=== PATIENT | female | born 1980 | race Caucasian/White ===

== ENCOUNTER → 2021-04-11 11:17 | Outpatient (CLI) | payer OTHER, SELFPAY ==
[2013-11-01 06:17] VITALS: BMI 22.8
[2021-04-11 15:15] LABS: Absolute Lymphocyte Count 2.14 X10^3/uL (0.83-4.51); Basophil# 0.02 X10^3/uL; Basophil% 0.4 % (0-1); Eosinophil# 0.08 X10^3/uL; Eosinophils% 1.7 % (0-5); Hematocrit 43.6 % (37-47); Hemoglobin 14.3 g/dL (12.0-15.0); Lymphocyte # 2.14 X10^3/ul (0.83-4.51); Lymphocyte % 46.2 % (19-41); Mean Corp Hgb Conc 32.8 g/dL (32-36); Mean Corpuscular Hgb 31.4 pg (27.0-32.0); Mean Corpuscular Volume 95.6 fL (81-99); Mean Platelet Vol. 9.7 fl (6.2-12.0); Monocyte# 0.37 X10^3/uL; NRBC Flagged by Analyzer 0 % (0-5); Neutrophil # 2.01 X10^3/uL (2.7-7.7); Neutrophil % 43.5 % (47-70); Platelet Count 221 K/mm3 (150-450); RBC Distribution Width CV 11.5 % (11.6-14.6); RBC Distribution Width SD 40.5 fl (35.1-43.9); Red Blood Count 4.56 M/mm3 (4.2-5.4); White Blood Count 4.6 K/mm3 (4.4-11.0)
[2021-04-11 15:28] LABS: Erythrocyte Sedimentation Rate 2 mm/hr (0-30)
[2021-04-11 15:46] LABS: ALB/GLOB Ratio 1.1 RATIO (0.9-2.4); AST(SGOT) 14 U/L (15-37); Alanine Aminotransfer ALT/SGPT 18 U/L (13-56); Albumin, Serum 3.7 g/dL (3.2-5.0); Alkaline Phosphatase 53 U/L (45-117); Anion Gap 5 (5-15); BUN 12 mg/dL (7-18); BUN/Creat Ratio 18.3 RATIO (10-20); CRP < 2.90 mg/L (0.0-3.0); Calcium,Total 8.3 mg/dL (8.5-10.1); Chloride 107 mmol/L (98-107); Cholesterol 140 mg/dL (200); Creatinine, Serum 0.66 mg/dL (0.55-1.02); EST Glomerular Filtration Rate 107 mL/min (>60); Est Glom Filt Rate - Afr Amer 130 mL/min (>60); Globulin 3.3 g/dL (2.2-4.2); Glucose 68 mg/dL (74-106); High Density Lipoprotein 74 mg/dL; Potassium 4.3 mmol/L (3.5-5.1); Sodium Level 139 mmol/L (136-145); Thyroid Stim Hormone (TSH) 0.79 uIU/mL (0.358-3.74); Triglycerides 74 mg/dL; Very Low Density Lipoprotein 15 mg/dL (5-40)
[2021-04-12 08:25] LABS: Vitamin B12 323 pg/mL (211-911)
== END ==
PROVIDERS: PCP Family Medicine; Referring Provider Family Medicine; Visit Provider Family Medicine
DX: Z13.220 Encounter for screening for lipoid disorders (principal); M25.50 Pain in unspecified joint; R53.83 Other fatigue
CPT/HCPCS: 36415; 80053; 80061; 82607; 84443; 85025; 85652; 86140

== ENCOUNTER → 2021-04-19 06:32 | Outpatient (CLI) | payer OTHER, SELFPAY ==
--- NOTE | 2021-04-19 06:41 | MRI_ITS ---
STUDY: MRI BRAIN WITH AND WITHOUT CONTRAST REASON FOR EXAM: Female, 40 years old. FOCAL NEUROLOGICAL DEFICIT TECHNIQUE: Standardized multiplanar fat and water weighted pulse sequences were obtained. IV dotarem 13ml was administered for the contrast portion of the examination. COMPARISON: None. FINDINGS: Normal size of the ventricles and extra-axial spaces for the patient''s age. Normal white matter tracts of the supratentorial brain. There is no evidence for recent intracranial ischemia or other cause of cytotoxic edema on diffusion weighted imaging (DWI). Normal T2* images of the brain without demonstrated susceptibility artifact. There is no demonstrated hemosiderin stain. Normal bilateral basal ganglia. Normal thalami. There is no extra-axial fluid accumulation. Normal flow voids within the major intracranial circulation suggesting patency by spin echo criteria. Normal venous enhancement. There is no enhancing intra-axial or extra-axial abnormality. Normal sella turcica, pituitary gland, infundibular stalk, optic chiasm and hypothalamus. Normal tectal plate and pineal gland. Normal midbrain, kamlesh and medulla. Normal cerebellum. Normal basal cisterns. Normal bilateral temporal bones. Normal bilateral internal auditory canals. No demonstrated orbital abnormality, within the constraints of a routine brain study. Normal visualized paranasal sinuses. Normal calvarium and skull base. Normal visualized soft tissue structures. Normal visualized upper cervical spine. MRI/Brain W/WO Contrast IMPRESSION: Normal unenhanced and enhanced MRI of the brain. Electronically Signed: Wiliam Chowdhury MD at 9:39 EDT Tel , Service support ,
== END ==
PROVIDERS: PCP Family Medicine; Referring Provider Family Medicine; Visit Provider Family Medicine
DX: R29.818 Other symptoms and signs involving the nervous system (principal)
CPT/HCPCS: 70553; A9575

== ENCOUNTER → 2021-04-26 06:48 | Outpatient (CLI) | payer OTHER, SELFPAY ==
--- NOTE | 2021-04-26 06:55 | MRI_ITS ---
STUDY: MRI CERVICAL SPINE WITH AND WITHOUT CONTRAST REASON FOR EXAM: Female, 40 years old. FOCAL NEUROLOGICAL DEFICIT TECHNIQUE: Standardized fat and water weighted pulse sequences were obtained in the sagittal and axial following administration of 13ml IV Dotarem. Standard precontrast images were obtained. COMPARISON: None FINDINGS: Normal foramen magnum and brainstem-cervical cord junction. Normal craniovertebral junction. Normal anterior atlantoaxial articulation. Normal odontoid process. Normal cervical lordosis. No acute fracture or dislocation. No cortical destruction. No abnormal cord signal. No abnormal contrast enhancement. Vascular flow voids maintained. Shoddy cervical lymph nodes. T3 hemangioma. Small nonenhancing noncystic left posterior soft tissue subcutaneous lesion measuring 8 mm x 6 mm. C2-3: Normal endplates. Normal disc height, signal and morphology. Normal central canal and intervertebral neural foramina. C3-4: Normal endplates. Normal disc height, signal and morphology. Normal central canal and intervertebral neural foramina. C4-5: Normal endplates. Normal disc height, signal and morphology. Normal central canal and intervertebral neural foramina. C5-6: Normal endplates. Mild disc desiccation.. Normal central canal and intervertebral neural foramina. C6-7: Normal endplates. Disc desiccation with right foraminal progression (sagittal image 12 and axial image 52). Moderate right neural foraminal narrowing. Normal left neural foramina. C7-T1: Normal endplates. Normal disc height, signal and morphology. Normal central canal and intervertebral neural foramina. MRI/Spine Cervical W/WO Contrast IMPRESSION: No abnormal cord signal or abnormal contrast enhancement C6-7 right foraminal protrusion with C5-6, C6-7 disc desiccation C6-7 moderate right neural foraminal narrowing T3 hemangioma Shoddy cervical lymph nodes with small nonenhancing soft tissue lesion (statistically benign) Electronically Signed: Eliseo Cárdenas DO at 10:19 EDT Tel , Service support ,
--- NOTE | 2021-04-26 06:55 | MRI_ITS ---
STUDY: MRI THORACIC SPINE WITH AND WITHOUT CONTRAST REASON FOR EXAM: Female, 40 years old. FOCAL NEUROLOGICAL DEFICIT TECHNIQUE: 13ml IV Dotarem was administered for the contrast portion of the examination. Standard precontrast T1 and T2 sagittal and axial images were obtained. COMPARISON: None. FINDINGS: No abnormal/unexpected contrast enhancement. No abnormal cord signal. Conus medullaris terminates normally at the L1 level. No acute fracture, dislocation or cortical destruction. T10 hemangioma. Thoracic kyphosis maintained. No significant scoliosis. No spondylolisthesis. T1-2, T2-3, T3-4, T4-5, T5-6, T6-7, T7-8, T8-9, T9-10, T10-11, T11-12: Mild disc desiccation. Shallow disc bulges. No significant central canal narrowing. No significant neural foraminal narrowing. Minimal disc height loss. Normal mediastinum. Normal lungs. Normal upper abdomen. Normal paraspinal muscles. MRI/Spine Thoracic W/WO Contrast IMPRESSION: No abnormal cord signal or contrast enhancement Shallow thoracic disc bulges with mild disc desiccation No significant central canal or neural foraminal narrowing T3 and T10 hemangiomas Electronically Signed: Eliseo Cárdenas DO at 10:22 EDT Tel , Service support ,
== END ==
PROVIDERS: PCP Family Medicine; Referring Provider Family Medicine; Visit Provider Family Medicine
DX: R29.818 Other symptoms and signs involving the nervous system (principal); D18.09 Hemangioma of other sites; M50.222 Other cervical disc displacement at C5-C6 level; M51.24 Other intervertebral disc displacement, thoracic region
CPT/HCPCS: 72156; 72157; A9575

== ENCOUNTER → 2022-10-20 | Outpatient (CLI) | payer BC, SELFPAY ==
--- NOTE | 2022-10-20 13:33 | BI_ITS ---
MAMMOGRAPHY - BILATERAL SCREENING REASON FOR EXAM: Female, 42 years old. Routine annual screening examination. PERTINENT HISTORY: Grandmother with breast cancer. Aunt with breast cancer. TECHNIQUE: Digital bilateral breast heron (3D mammographic acquisition) in the CC and MLO projections. 2-D mediolateral oblique (MLO) and craniocaudad (CC) views of both breasts were obtained. CAD: Full Field Digital Mammography with Computer Added Detection was performed. COMPARISON: None. Baseline examination. FINDINGS: Breast Composition: There are scattered areas of fibroglandular density. There are no dominant masses or suspicious calcifications. No other significant abnormalities are identified. BI/SCRN MAMM (CAD)W/HERON BILAT IMPRESSION: Negative screening mammogram. Yearly followup mammogram recommended. (A) ASSESSMENT CATEGORY: BIRADS Category 1: Negative. A letter regarding these results will be sent to the patient by the facility within 30 days. Approximately 10% of breast cancers are not detected by mammography. A normal mammogram should not delay biopsy of a clinically suspicious abnormality. [id number] Electronically Signed: Lico Colunga MD at 8:14 EST ,
== END | disposition home or self-care (01) ==
PROVIDERS: PCP Family Medicine; Visit Provider Obstetrics & Gynecology
DX: Z12.31 Encounter for screening mammogram for malignant neoplasm of breast (principal); Z80.3 Family history of malignant neoplasm of breast
CPT/HCPCS: 77063; 77067

== ENCOUNTER → 2024-10-19 | Outpatient (CLI) | payer BC, SELFPAY ==
[2024-10-19 19:03] LABS: Thyroid Stim Hormone (TSH) 0.938 uIU/mL (0.358-3.740)
== END | disposition home or self-care (01) ==
LOC: MFPLAB 15:35
PROVIDERS: PCP Nurse Practitioner Family; Referring Provider Nurse Practitioner Family; Visit Provider Nurse Practitioner Family
DX: E03.9 Hypothyroidism, unspecified (principal)
CPT/HCPCS: 36415; 84443